=== PATIENT | female | born 1990 | race Two or more races ===

== ENCOUNTER 2017-09-27 19:48 | Emergency (ER) | payer MEDICAID ==
[2017-09-27 20:06] VITALS: BP 122/77
[2017-09-27] MEDS ORDERED: Ketorolac 30 MG/ML SDV IM ONE (20:28)
--- NOTE | 2017-09-27 20:34 | EDM.PDOC ---
ED HPI GENERAL MEDICAL PROBLEM - General Chief Complaint: Upper Extremity Injury/Pain Stated Complaint: ARM AND SHOULDER PAIN NOT AN ACCIDENT Time Seen by Provider: 09/27/17 20:15 Source of Information: Reports: Patient, Old Records, RN History Limitations: Reports: No Limitations - History of Present Illness INITIAL COMMENTS - FREE TEXT/NARRATIVE: 26 yo female presents with a 5 d hx of R upper/anterior chest pain. Does not recall any injury. Has had a mild cough without fever or SOB. Was seen in the clinic a few days ago and was told to use ibuprofen for 3 days and it should go away, however, the pain is not better. Hurts to cough. Hurts to touch the area of pain. Her last dose of ibuprofen was this morning. Onset: Gradual Onset Date: 09/23/17 Duration: Day(s):, Constant Location: Reports: Chest (R upper) Quality: Reports: Sharp, Stabbing Severity: Moderate Improves with: Reports: Rest Worsens with: Reports: Movement (or coughing) Context: Reports: Other (unknown) Associated Symptoms: Reports: Chest Pain (R upper anterior chest.) Treatments PATIENT CLERICAL ASSISTANT: Reports: Other (see below) (none) Right Shoulder Pain Score (Numeric/FACES): 5 - Related Data Allergies Allergy/AdvReac Type Severity Reaction Status Date / Time azithromycin Allergy Abdominal Verified 09/27/17 20:06 [From Zithromax Z-Raymond] Pain Home Meds: Home Meds Cyclobenzaprine [Flexeril] 10 mg PO ASDIRECTED PRN 09/27/17 [History] Docusate Sodium [Colace] 100 mg PO DAILY 09/27/17 [History] Escitalopram [Lexapro] 10 mg PO DAILY 09/27/17 [History] Omeprazole [priLOSEC OTC] 20 mg PO DAILY 09/27/17 [History] Triamcinolone Acetonide [Kenalog 0.1% Crm] 0 gm TOP BID 09/27/17 [History] Past Medical History Respiratory History: Reports: Asthma Gastrointestinal History: Reports: [employer] History: Reports: Psychiatric History: Reports: Anxiety, Depression Dermatologic History: Reports: Psoriasis - Past Surgical History HEENT Surgical History: Reports: Tonsillectomy Social & Family History - Tobacco Use Smoking Status *Q: Unknown Ever Smoked - Recreational Drug Use Recreational Drug Use: No Review of Systems - Review of Systems Review Of Systems: See Below Constitutional: Reports: No Symptoms Nose: Reports: Other (minimal rhinorrhea) Mouth/Throat: Reports: No Symptoms Respiratory: Reports: Pleuritic Chest Pain (R upper chest), Cough (infrequent). Denies: Shortness of Breath, Wheezing, Sputum Cardiovascular: Reports: No Symptoms GI/Abdominal: Reports: No Symptoms Genitourinary: Reports: No Symptoms Musculoskeletal: Reports: Other (R upper chest wall pain anteriorly) Skin: Reports: No Symptoms Neurological: Reports: No Symptoms ED EXAM, GENERAL - Physical Exam Exam: See Below Exam Limited By: No Limitations General Appearance: Alert, WD/WN, No Apparent Distress Eye Exam: Bilateral Eye: Normal Inspection Ears: Normal External Exam, Normal Canal, Hearing Grossly Normal Ear Exam: Bilateral Ear: Auricle Normal, Canal Normal Nose: Normal Inspection, Normal Mucosa, No Blood Throat/Mouth: Normal Inspection, Normal Lips, Normal Voice, No Airway Compromise Head: Atraumatic, Normocephalic Neck: Normal Inspection, Supple, Non-Tender Respiratory/Chest: No Respiratory Distress, Lungs Clear, Normal Breath Sounds, No Accessory Muscle Use, Other (Rib pain just below the R clavicle, no crepitus. Compression of chest from the sides where she is not tender increases her R upper chest wall pain. ). No: Chest Non-Tender Cardiovascular: Regular Rate, Rhythm Extremities: Normal Inspection, Normal Range of Motion, Non-Tender Neurological: Alert, Oriented, CN II-XII Intact, Normal Cognition, No Motor/ Sensory Deficits Psychiatric: Normal Affect, Normal Mood Skin Exam: Warm, Dry, Intact, Normal Color, No Rash Lymphatic: No Adenopathy Course - Vital Signs Last Recorded V/S: Last Vital Signs Temp 37.0 C 09/27/17 20:04 Pulse 65 09/27/17 20:04 Resp 14 09/27/17 20:04 BP 122/77 09/27/17 20:04 Pulse Ox 96 09/27/17 20:04 - Orders/Labs/Meds Orders: Active Orders 24 hr Category Date Time Status Chest 1V Frontal [CR] Stat Exams 09/27/17 20:28 Ordered Meds: Medications Discontinued Medications Generic Name Dose Route Start Last Admin Trade Name Freq PRN Reason Stop Dose Admin Ketorolac Tromethamine 30 mg 09/27/17 20:28 09/27/17 20:39 Toradol IM 09/27/17 20:29 Not Given ONETIME ONE - Radiology Interpretation Free Text/Narrative:: CXR-negative Departure - Departure Time of Disposition: 20:50 Disposition: Home, Self-Care 01 Condition: Good Clinical Impression: Rib pain on right side - Discharge Information Referrals: PCP,None [Primary Care Provider] - Forms: ED Department Discharge - My Orders Last 24 Hours: My Active Orders 09/27/17 20:28 Chest 1V Frontal [CR] Stat - Assessment/Plan Last 24 Hours: My Active Orders 09/27/17 20:28 Chest 1V Frontal [CR] Stat
--- NOTE | 2017-09-30 08:38 | CR ---
CHEST: Single view CLINICAL HISTORY:Chest pain COMPARISON:None FINDINGS: Lungs are clear heart and pulmonary vascularity appear normal. . IMPRESSION: No acute cardiopulmonary process sign
== END 2017-09-27 20:50 | disposition home or self-care (01) ==
LOC: JP.ED 19:48
DX: R07.81 Pleurodynia (principal); J45.909 Unspecified asthma, uncomplicated; Z88.1 Allergy status to other antibiotic agents; Z79.899 Other long term (current) drug therapy
CPT/HCPCS: 71045; 71045-26; 99284

== ENCOUNTER 2021-08-01 12:54 | Emergency (ER) | payer MEDICAID ==
[2021-08-01 13:36] VITALS: BP 112/71; PULSE 97
[2021-08-01 14:25] LABS: CORONAVIRUS COVID-19 NAA POSITIVE (NEGATIVE)
== END 2021-08-01 14:49 | disposition home or self-care (01) ==
LOC: JP.ED 12:54
DX: U07.1 COVID-19 (principal); J45.909 Unspecified asthma, uncomplicated; K21.9 Gastro-esophageal reflux disease without esophagitis; Z88.1 Allergy status to other antibiotic agents; Z79.899 Other long term (current) drug therapy
CPT/HCPCS: 0241U; 99282; 99284

== ENCOUNTER 2021-10-01 16:06 | Emergency (ER) | payer MEDICAID ==
[2021-10-01] MEDS ORDERED: Ondansetron 4 MG/2 ML SDV IVPUSH ONE (17:05)
[2021-10-01] MEDS ORDERED: Lactated Ringers 1,000 ML IV ONE (17:05)
[2021-10-01 17:09] VITALS: BP 118/77; PULSE 64
[2021-10-01 17:30] LABS: CORONAVIRUS COVID-19 NAA NEGATIVE (NEGATIVE)
[2021-10-01] MEDS ORDERED: Ketorolac 30 MG/ML SDV IVPUSH ONE (17:51)
== END 2021-10-01 18:39 | disposition home or self-care (01) ==
LOC: JP.ED 16:06
DX: K52.9 Noninfective gastroenteritis and colitis, unspecified (principal); K21.9 Gastro-esophageal reflux disease without esophagitis; Z88.1 Allergy status to other antibiotic agents; Z86.16 Personal history of COVID-19; Z20.822 Contact with and (suspected) exposure to COVID-19
CPT/HCPCS: 0241U; 36415; 80048; 83605; 84703; 85025; 96374; 96375; 99284; J1885; J2405; J7120; 99282

== ENCOUNTER 2022-01-18 07:31 | Day surgery (SDC) | payer MEDICAID ==
[~2022-01-18 07:31] MED LIST: Bupivacaine 0.5% 30 ML SDV ONE; Lidocaine 1% with EPINEPHrine 1:100,000 50 ML MDV ONE; Lidocaine 2% Jelly 30 ML Tube ONE; Midazolam 1 MG/ML 2 ML SDV ONE; Propofol 200 MG/20 ML SDV ONE; fentaNYL 100 MCG/2 ML SDV ONE
[2022-01-18] MEDS ORDERED: Sodium Chloride 0.9% 1,000 ML IV SCH (07:45)
[2022-01-18] MEDS ORDERED: ceFAZolin 2 GM in Sodium Chloride 0.9% 50 ML IV ONE (08:30)
[2022-01-18 11:01] VITALS: BP 106/70; PULSE 65
== END 2022-01-18 11:15 | disposition home or self-care (01) ==
LOC: JP.SDS 07:31
PROVIDERS: ATTEND Surgery
DX: K64.4 Residual hemorrhoidal skin tags (principal); Z88.1 Allergy status to other antibiotic agents
CPT/HCPCS: 46999; 81025; 88304; J0690; J2250; J2704; J3010; J3490; J7030